=== PATIENT | female | born 1985 | race Two or more races ===

== ENCOUNTER 2019-01-29 20:29 | Emergency (ER) | payer OTHER ==
[~2019-01-29] VITALS: Ht 152.4 cm; Wt 54.4 kg
[2019-01-29 20:30] VITALS: BP 139/85
--- NOTE | 2019-01-29 23:43 | NUR ---
YOUNG AT BEDSIDE.
== END 2019-01-30 00:06 | disposition home or self-care (01) ==
LOC: ER 20:35
DX: M93.261 Osteochondritis dissecans, right knee (principal); R60.0 Localized edema
CPT/HCPCS: 93971-TC